=== PATIENT | male | born 1955 | race Caucasian/White ===

== ENCOUNTER 2024-06-06 12:35 | Day surgery (SDC) | payer MEDICARE, BC ==
[~2024-06-06] VITALS: Ht 167.6 cm; Wt 72.8 kg
[~2024-06-06 12:35] MED LIST: ASPI81TA26 PO; ATOR80TA59 PO; CETI-24 PO; LIDOCAINE 3.5 % 1ML OPHTH TOPICAL GEL OU ONE; LISI5TAB11 PO; METO1TAB7 PO; MIDAZOLAM INJ 2MG/2ML VIAL As Ordered ONE; REST0.05 OU; fentaNYL 100 MCG/2 ML INJECTION As Ordered ONE
[2024-06-06] MEDS ORDERED: propofoL 200 MG/20 ML VIAL As Ordered ONE (13:54)
[2024-06-06] MEDS: POVIDONE-IODINE 5% OPHTH PREP SOL 30ML As Ordered ONE (14:15)
[2024-06-06] MEDS: LIDOCAINE 2% W/EPINEPHRINE 20ML VIAL **PRES FREE As Ordered ONE (14:30)
[2024-06-06] MEDS: CIPROFLOXACIN 0.3% OPHTH OINTMENT As Ordered ONE (14:35)
[2024-06-06 14:40] VITALS: BP 154/70; TEMP 97.8; O2SAT 96
[2024-06-06] MEDS: TETRACAINE 0.5% OPHTH SOLN 4ML As Ordered ONE (14:40)
[2024-06-06] MEDS: SODIUM BICARBONATE 8.4% INJ 50MEQ 50ML VIAL As Ordered ONE (14:40)
== END 2024-06-06 15:08 | disposition home or self-care (01) ==
LOC: M SDC 12:35
PROVIDERS: ATTEND Ophthalmology
DX: H02.834 Dermatochalasis of left upper eyelid (principal); H02.831 Dermatochalasis of right upper eyelid; G47.30 Sleep apnea, unspecified; Z95.5 Presence of coronary angioplasty implant and graft; Z79.899 Other long term (current) drug therapy; Z87.891 Personal history of nicotine dependence
CPT/HCPCS: 15823; 88300; J2250; J3010